=== PATIENT | female | born 1940 | race African-American/Black ===

== ENCOUNTER 2016-05-23 13:09 | Inpatient (IN) | payer MEDICARE, MEDICAID ==
[~2016-05-23] VITALS: Ht 182.9 cm; Wt 66.2 kg
[~2016-05-23 13:09] MED LIST: AMLO1TAB12 PO; AMLO5TAB4 GT; FLUT16SP15 BOTHNSTRLS; LEVO50TA8 GT; LEVO50TA8 PO; LORA0.5T2 PO; MORP15TA67 PO; SENN1TAB35 PO; SENN8.6C5 GT; [UNRECOGNIZED DRUG - CODE] GT
[2016-05-23] MEDS ORDERED: SODIUM CHLORIDE 0.9% 1,000 ML IV ONE (13:49)
[2016-05-23 14:31] LABS: BASOPHILS % 0.4 % (0.0-2.0); DIFFERENTIAL COMMENT 0; EOSINOPHILS % 0.2 % (0.0-5.0); HEMATOCRIT. 29.7 % (36.0-48.0); HEMOGLOBIN. 10.1 g/dL (12.0-16.0); LYMPHOCYTES % 29.5 % (20.0-50.0); MEAN CORPUSCULAR HGB CONC 34.2 g/dL (31.0-37.0); MEAN PLATELET VOLUME 8.6 fl (7.4-10.4); MONOCYTES % 10.1 % (2.0-8.0); NEUTROPHILS % 59.8 % (40.0-76.0); PLATELET 478 x1000/uL (130-400); RED CELL DISTRIBUTION WIDTH 17.8 % (11.6-14.6); WHITE BLOOD COUNT 6.6 x1000/uL (4.5-11.0)
[2016-05-23 14:38] LABS: INR 1.2; PROTHROMBIN TIME 12.2 sec
[2016-05-23 14:48] LABS: ALANINE AMINOTRANSFERASE 14 IU/L (13-61); ANION GAP 14; CALCIUM 7.9 mg/dL (8.5-10.1); CARBON DIOXIDE 26 mEq/L (21-32); CHLORIDE 93 mEq/L (98-107); INDEX HEMOLYSI 1 (1-3); INDEX ICTERIC 1 (1-4); INDEX LIPEMIC 1 (1-3); LIPASE 82 IU/L (73-393); NT PRO B-TYPE NATRIURETIC PEP 1552 pg/mL (5-125); TROPONIN I 0.08 ng/mL (0.00-0.04); UREA NITROGEN BLOOD 13 mg/dL (7-21); eGFR > 60 mL/min (>60)
[2016-05-23 14:51] LABS: CLARITY URINE CLEAR (CLEAR); COLOR URINE YELLOW (YELLOW); GLUCOSE URINE NEGATIVE (NEGATIVE); KETONES URINE NEGATIVE (NEGATIVE); LEUKOCYTE ESTERASE URINE NEGATIVE (NEGATIVE); NITRITE URINE NEGATIVE (NEGATIVE); OCCULT BLOOD URINE 1+ (NEGATIVE); PH URINE >=9.0 (4.5-8.0); PROTEIN URINE 1+ (NEGATIVE); SPECIFIC GRAVITY URINE 1.007 (1.005-1.030); UROBILINOGEN URINE 0.2 E.U./dL (0.2-1.0)
[2016-05-23 15:06] LABS: BACTERIA URINE TRACE; SQUAMOUS EPITHELIAL CELL URINE FEW /lpf (RARE/1+); WBC URINE 0-2 /hpf (0-2)
[2016-05-23] MEDS ORDERED: LEVOFLOXACIN 750MG PREMIX 150 ML IV ONE (16:15)
[2016-05-23] MEDS ORDERED: METRONIDAZOLE 500 MG PREMIX 100 ML IV ONE (17:00)
[2016-05-23 21:00] VITALS: BP 129/94
[2016-05-23 21:28] VITALS: BP 129/94
[2016-05-24] VITALS: BP 128/96
[2016-05-24] MEDS ORDERED: DEXTROSE 50% WATER 50ML SYRINGE IV PRN (00:45)
[2016-05-24] MEDS ORDERED: ALBUMIN HUMAN 25GM/100ML (25%) IV NR ×2 (01:00→01:11)
[2016-05-24] MEDS ORDERED: LORAZEPAM 2MG/ML CPJ IV PRN (01:15)
[2016-05-24 04:00] VITALS: BP 145/96
[2016-05-24] MEDS ORDERED: INFLUENZA VIRUS VACCINE 0.5ML SYR IM ONE (06:00)
[2016-05-24 06:26] LABS: BASOPHILS % 0.3 % (0.0-2.0); DIFFERENTIAL COMMENT 0; EOSINOPHILS % 0.1 % (0.0-5.0); HEMATOCRIT. 25.8 % (36.0-48.0); HEMOGLOBIN. 8.8 g/dL (12.0-16.0); LYMPHOCYTES % 18.3 % (20.0-50.0); MEAN CORPUSCULAR HEMOGLOBIN 25.8 pg (28.0-32.0); MEAN CORPUSCULAR HGB CONC 34.2 g/dL (31.0-37.0); MEAN CORPUSCULAR VOLUME 75.5 fL (81.0-99.0); MEAN PLATELET VOLUME 8.2 fl (7.4-10.4); MONOCYTES % 9.7 % (2.0-8.0); NEUTROPHILS % 71.6 % (40.0-76.0); PLATELET 502 x1000/uL (130-400); RED BLOOD CELL COUNT 3.42 mill/uL (4.2-5.4); WHITE BLOOD COUNT 7.5 x1000/uL (4.5-11.0)
[2016-05-24] MEDS: BLOOD SUGAR DIAGNOSTIC STRIP TEST SCH ×4 (06:40→21:00)
[2016-05-24] MEDS: INSULIN LISPRO 100 UNITS/ML SUBCUT SCH ×4 (06:42→21:00)
[2016-05-24 06:51] LABS: CHLORIDE 96 mEq/L (98-107); INDEX HEMOLYSI 1 (1-3); INDEX ICTERIC 1 (1-4); INDEX LIPEMIC 1 (1-3)
[2016-05-24 07:18] LABS: POTASSIUM URINE RANDOM 26.1 mEq/L
[2016-05-24 07:26] LABS: ALANINE AMINOTRANSFERASE 13 IU/L (13-61); ALBUMIN 2.6 g/dL (3.4-5.0); ANION GAP 15; BILIRUBIN DIRECT 0.3 mg/dL (0.0-0.2); CALCIUM 8.1 mg/dL (8.5-10.1); CARBON DIOXIDE 22 mEq/L (21-32); IRON 19 ug/dL (50-175); MAGNESIUM 2.4 mg/dL (1.8-2.4); PHOSPHORUS 2.7 mg/dL (2.5-4.9); TOTAL IRON BINDING CAPACITY 148 ug/dL (250-450); UREA NITROGEN BLOOD 13 mg/dL (7-21); URIC ACID 3.6 mg/dL (2.6-7.2); eGFR > 60 mL/min (>60)
[2016-05-24 08:00] VITALS: BP 175/111
[2016-05-24] MEDS ORDERED: METRONIDAZOLE 500 MG PREMIX 100 ML IV SCH (09:00)
[2016-05-24] MEDS: FLUTICASONE PROPIONATE 50MCG/SPRAY BOTTLE BOTHNSTRLS SCH (09:44)
[2016-05-24] MEDS: LEVOTHYROXINE SODIUM 50MCG TABLET GT SCH (09:45)
[2016-05-24] MEDS: LORAZEPAM 0.5MG TABLET PO SCH ×3 (09:45→17:23)
[2016-05-24] MEDS: AMLODIPINE 5MG TABLET GT PRN (09:45)
[2016-05-24] MEDS: ASCORBIC ACID 500 MG TABLET GT SCH (09:45)
[2016-05-24 12:00] VITALS: BP 132/91
[2016-05-24] MEDS: METRONIDAZOLE 500 MG PREMIX 100 ML IV SCH ×2 (13:04→17:23)
[2016-05-24 16:00] VITALS: BP 130/98
[2016-05-24 20:00] VITALS: BP 123/81
[2016-05-25] VITALS: BP 149/101
[2016-05-25] MEDS: METRONIDAZOLE 500 MG PREMIX 100 ML IV SCH ×3 (02:34→18:48)
[2016-05-25 04:00] VITALS: BP 147/91
[2016-05-25 06:00] LABS: BASOPHILS % 0.5 % (0.0-2.0); DIFFERENTIAL COMMENT 0; EOSINOPHILS % 0.5 % (0.0-5.0); HEMATOCRIT. 26.2 % (36.0-48.0); HEMOGLOBIN. 9.1 g/dL (12.0-16.0); LYMPHOCYTES % 16.4 % (20.0-50.0); MEAN CORPUSCULAR HEMOGLOBIN 26.4 pg (28.0-32.0); MEAN CORPUSCULAR HGB CONC 34.7 g/dL (31.0-37.0); MEAN PLATELET VOLUME 8.2 fl (7.4-10.4); MONOCYTES % 13.5 % (2.0-8.0); NEUTROPHILS % 69.1 % (40.0-76.0); PLATELET 423 x1000/uL (130-400); RED BLOOD CELL COUNT 3.44 mill/uL (4.2-5.4); RED CELL DISTRIBUTION WIDTH 18.5 % (11.6-14.6); WHITE BLOOD COUNT 7.8 x1000/uL (4.5-11.0)
[2016-05-25] MEDS: BLOOD SUGAR DIAGNOSTIC STRIP TEST SCH ×4 (06:12→20:19)
[2016-05-25] MEDS: INSULIN LISPRO 100 UNITS/ML SUBCUT SCH ×5 (06:12→20:20)
[2016-05-25 06:49] LABS: ALANINE AMINOTRANSFERASE 11 IU/L (13-61); ALBUMIN 2.3 g/dL (3.4-5.0); ANION GAP 12; BILIRUBIN DIRECT 0.2 mg/dL (0.0-0.2); CALCIUM 7.8 mg/dL (8.5-10.1); CARBON DIOXIDE 27 mEq/L (21-32); CHLORIDE 97 mEq/L (98-107); INDEX HEMOLYSI 1 (1-3); INDEX ICTERIC 1 (1-4); INDEX LIPEMIC 1 (1-3); MAGNESIUM 2.4 mg/dL (1.8-2.4); PHOSPHORUS 2.2 mg/dL (2.5-4.9); UREA NITROGEN BLOOD 19 mg/dL (7-21); eGFR > 60 mL/min (>60)
[2016-05-25 06:52] LABS: T3 FREE 1.57 pg/ml (2.18-3.98); T4 FREE 1.69 ng/dL (0.76-1.46)
[2016-05-25 08:00] VITALS: BP 142/92
[2016-05-25 08:01] LABS: INDEX HEMOLYSI 1 (1-3)
[2016-05-25 08:20] LABS: VITAMIN B12 SERUM 1602 pg/mL (211-911)
[2016-05-25 08:21] LABS: FOLIC ACID (FOLATE) SERUM > 20.00 ng/mL (>5.38)
[2016-05-25] MEDS: LORAZEPAM 0.5MG TABLET PO SCH ×3 (09:00→17:00)
[2016-05-25] MEDS: FLUTICASONE PROPIONATE 50MCG/SPRAY BOTTLE BOTHNSTRLS SCH (09:00)
[2016-05-25] MEDS: ASCORBIC ACID 500 MG TABLET GT SCH (09:00)
[2016-05-25] MEDS: LEVOTHYROXINE SODIUM 50MCG TABLET GT SCH (09:00)
[2016-05-25 12:00] VITALS: BP 128/95
[2016-05-25 16:00] VITALS: BP 129/91
[2016-05-25 20:00] VITALS: BP 147/97
[2016-05-26] MEDS: METRONIDAZOLE 500 MG PREMIX 100 ML IV SCH ×3 (01:59→18:18)
[2016-05-26 04:00] VITALS: BP 145/104
[2016-05-26] MEDS: INSULIN LISPRO 100 UNITS/ML SUBCUT SCH ×4 (05:57→21:00)
[2016-05-26] MEDS: BLOOD SUGAR DIAGNOSTIC STRIP TEST SCH ×4 (05:57→22:03)
[2016-05-26 08:00] VITALS: BP 133/92
[2016-05-26] MEDS: ASCORBIC ACID 500 MG TABLET GT SCH (09:57)
[2016-05-26] MEDS: LEVOTHYROXINE SODIUM 50MCG TABLET GT SCH (09:58)
[2016-05-26] MEDS: FLUTICASONE PROPIONATE 50MCG/SPRAY BOTTLE BOTHNSTRLS SCH (09:58)
[2016-05-26] MEDS: LORAZEPAM 0.5MG TABLET PO SCH ×3 (09:58→18:18)
[2016-05-26 12:12] VITALS: BP 120/78
[2016-05-26 16:00] VITALS: BP 130/87
[2016-05-26 20:00] VITALS: BP 116/78
[2016-05-26] MEDS ORDERED: MAGNESIUM CITRATE 300ML SOLUTION PO PRN (21:00)
[2016-05-27] VITALS: BP 132/81
[2016-05-27] MEDS: METRONIDAZOLE 500 MG PREMIX 100 ML IV SCH ×3 (01:10→20:44)
[2016-05-27 04:00] VITALS: BP 123/81
[2016-05-27] MEDS: INSULIN LISPRO 100 UNITS/ML SUBCUT SCH ×4 (06:19→21:00)
[2016-05-27] MEDS: BLOOD SUGAR DIAGNOSTIC STRIP TEST SCH ×4 (06:20→21:00)
[2016-05-27 07:06] LABS: BASOPHILS % 0.5 % (0.0-2.0); DIFFERENTIAL COMMENT 0; EOSINOPHILS % 1.6 % (0.0-5.0); HEMATOCRIT. 26.9 % (36.0-48.0); HEMOGLOBIN. 9.2 g/dL (12.0-16.0); LYMPHOCYTES % 23.8 % (20.0-50.0); MEAN CORPUSCULAR HEMOGLOBIN 26.1 pg (28.0-32.0); MEAN CORPUSCULAR HGB CONC 34.3 g/dL (31.0-37.0); MEAN CORPUSCULAR VOLUME 76.2 fL (81.0-99.0); MEAN PLATELET VOLUME 8.3 fl (7.4-10.4); MONOCYTES % 12.4 % (2.0-8.0); NEUTROPHILS % 61.7 % (40.0-76.0); PLATELET 474 x1000/uL (130-400); RED BLOOD CELL COUNT 3.53 mill/uL (4.2-5.4); RED CELL DISTRIBUTION WIDTH 18.5 % (11.6-14.6)
[2016-05-27 07:12] LABS: BILIRUBIN DIRECT 0.2 mg/dL (0.0-0.2); MAGNESIUM 2.4 mg/dL (1.8-2.4); PHOSPHORUS 2.9 mg/dL (2.5-4.9)
[2016-05-27 07:31] LABS: ANION GAP 11; CALCIUM 7.7 mg/dL (8.5-10.1); CARBON DIOXIDE 27 mEq/L (21-32); CHLORIDE 100 mEq/L (98-107); INDEX HEMOLYSI 1 (1-3); INDEX ICTERIC 1 (1-4); INDEX LIPEMIC 1 (1-3); UREA NITROGEN BLOOD 24 mg/dL (7-21); eGFR > 60 mL/min (>60)
[2016-05-27 08:00] VITALS: BP 121/75
[2016-05-27] MEDS: ASCORBIC ACID 500 MG TABLET GT SCH (09:51)
[2016-05-27] MEDS: LEVOTHYROXINE SODIUM 50MCG TABLET GT SCH (09:51)
[2016-05-27] MEDS: LORAZEPAM 0.5MG TABLET PO SCH ×3 (09:51→20:43)
[2016-05-27] MEDS ORDERED: MAGNESIUM CITRATE 300ML SOLUTION PO NR (10:45)
[2016-05-27] MEDS ORDERED: BISACODYL 10MG SUPP PR NR (10:45)
[2016-05-27 12:00] VITALS: BP 166/104
[2016-05-27 16:00] VITALS: BP 153/97
[2016-05-27 20:00] VITALS: BP 148/98
[2016-05-28] VITALS: BP 137/88
[2016-05-28] MEDS: METRONIDAZOLE 500 MG PREMIX 100 ML IV SCH ×2 (03:35→12:37)
[2016-05-28 04:00] VITALS: BP 137/80
[2016-05-28] MEDS: BLOOD SUGAR DIAGNOSTIC STRIP TEST SCH ×2 (06:05→12:38)
[2016-05-28] MEDS: INSULIN LISPRO 100 UNITS/ML SUBCUT SCH ×2 (06:05→12:15)
[2016-05-28 08:00] VITALS: BP 156/101
[2016-05-28 12:00] VITALS: BP 153/106
[2016-05-28] MEDS: ASCORBIC ACID 500 MG TABLET GT SCH (12:31)
[2016-05-28] MEDS: LEVOTHYROXINE SODIUM 50MCG TABLET GT SCH (12:32)
[2016-05-28] MEDS: LORAZEPAM 0.5MG TABLET PO SCH ×2 (12:32→13:00)
[2016-05-28] MEDS: AMLODIPINE 5MG TABLET GT PRN (12:32)
[2016-05-28 16:00] VITALS: BP 163/107
[2016-05-28 19:03] VITALS: BP 153/106
[2016-05-28] MEDS ORDERED: METRONIDAZOLE 500MG TABLET GT SCH (22:00)
== END 2016-05-28 20:05 | disposition home or self-care (01) | DRG 371 ==
LOC: ER 13:16 → 7EST 16:52 → 5WST 05-25 12:13
PROVIDERS: ADMIT Internal Medicine; ATTEND Internal Medicine
DX: A04.7 Enterocolitis due to Clostridium difficile (principal); E43 Unspecified severe protein-calorie malnutrition; J69.0 Pneumonitis due to inhalation of food and vomit; E87.1 Hypo-osmolality and hyponatremia; N39.0 Urinary tract infection, site not specified; Z68.1 Body mass index [BMI] 19.9 or less, adult; G30.9 Alzheimer's disease, unspecified; F02.80 Dementia in other diseases classified elsewhere, unspecified severity, without behavioral disturbance, psychotic disturbance, mood disturbance, and anxiety; I10 Essential (primary) hypertension; E78.5 Hyperlipidemia, unspecified; K59.00 Constipation, unspecified; E11.649 Type 2 diabetes mellitus with hypoglycemia without coma; D50.9 Iron deficiency anemia, unspecified; Z93.1 Gastrostomy status; Z88.0 Allergy status to penicillin; Z88.5 Allergy status to narcotic agent; Z79.899 Other long term (current) drug therapy; Z82.5 Family history of asthma and other chronic lower respiratory diseases; Z82.49 Family history of ischemic heart disease and other diseases of the circulatory system; Z82.0 Family history of epilepsy and other diseases of the nervous system
CPT/HCPCS: 36415; 71010; 74000; 74176; 80053; 80069; 80076; 81001; 82248; 82570; 82607; 82746; 82962; 83540; 83550; 83605; 83690; 83735; 83880; 84100; 84133; 84145; 84156; 84300; 84439; 84443; 84481; 84484; 84550; 85025; 85610; 87040; 87077; 87493; 90686; 93005; 96361; 96365; 96366; 96375; 99285; J1815; J1956; J2060; J3490; J7030; J7050; P9047

== ENCOUNTER 2016-12-23 10:30 | Emergency (ER) | payer MEDICARE, MEDICAID ==
[~2016-12-23] VITALS: Ht 182.9 cm; Wt 64.0 kg
[~2016-12-23 10:30] MED LIST changes: +ASCO-316 GT; -LORA0.5T2 PO; -[UNRECOGNIZED DRUG - CODE] GT
[2016-12-23] MEDS ORDERED: SODIUM CHLORIDE 0.9% 1,000 ML IV ONE (10:48)
[2016-12-23 11:18] LABS: HEMOGLOBIN. 11.3 g/dL (12.0-16.0); MEAN CORPUSCULAR HEMOGLOBIN 25.4 pg (28.0-32.0); MEAN PLATELET VOLUME 9.6 fl (7.4-10.4); PLATELET 217 x1000/uL (130-400); RED BLOOD CELL COUNT 4.46 mill/uL (4.2-5.4); RED CELL DISTRIBUTION WIDTH 18.4 % (11.6-14.6)
[2016-12-23 11:26] LABS: INR 1.1; PROTHROMBIN TIME 11.2 sec (9.4-11.6)
[2016-12-23 11:27] LABS: CHLORIDE 102 mEq/L (98-107)
[2016-12-23 11:35] LABS: CARBON DIOXIDE 28 mEq/L (21-32)
[2016-12-23 12:13] LABS: PLATELET ESTIMATE NORMAL
[2016-12-23] MEDS ORDERED: SODIUM BICARBONATE 4% (2.4MEQ) 5ML VIAL IV ONE (13:10)
[2016-12-23] MEDS ORDERED: LIDOCAINE HCL 1% 20ML VIAL (Pyxis) INJ ONE (13:10)
[2016-12-23] MEDS ORDERED: LIDOCAINE HCL 2% JELLY 5ML ONE (13:10)
[2016-12-23] MEDS ORDERED: IOHEXOL-300 50 ML BOTTLE IV ONE (13:11)
[2016-12-23 18:38] VITALS: BP 145/98
== END 2016-12-23 18:40 | disposition home or self-care (01) ==
LOC: ER 10:47
DX: Z43.1 Encounter for attention to gastrostomy (principal); G93.49 Other encephalopathy; I10 Essential (primary) hypertension; F03.90 Unspecified dementia, unspecified severity, without behavioral disturbance, psychotic disturbance, mood disturbance, and anxiety; Z88.1 Allergy status to other antibiotic agents; Z88.5 Allergy status to narcotic agent
CPT/HCPCS: 36415; 49450; 80053; 85025; 85610; 99284; C1725; C1892; J3490; Q9967; J7030

== ENCOUNTER 2016-12-24 18:26 | Inpatient (IN) | payer MEDICARE, MEDICAID ==
[~2016-12-24] VITALS: Ht 182.9 cm; Wt 59.9 kg
[2016-12-24 18:56] VITALS: BP 142/83
[2016-12-24 20:00] VITALS: BP 148/92
[2016-12-24] MEDS ORDERED: ENALAPRIL IV PRN (21:00)
[2016-12-24] MEDS ORDERED: DEXTROSE 5% IV PRN (21:00)
[2016-12-24] MEDS ORDERED: WATER IV PRN (21:00)
[2016-12-24] MEDS ORDERED: DEXT 5%/0.45% NACL 1000ML 1,000 ML IV SCH (21:15)
[2016-12-24] MEDS ORDERED: MORPHINE SULFATE 4 MG/ML CPJ (NOT FOR IM USE) IV PRN (21:30)
[2016-12-24 21:53] LABS: HEMATOCRIT. 34.1 % (36.0-48.0); HEMOGLOBIN. 11.4 g/dL (12.0-16.0); MEAN CORPUSCULAR VOLUME 74.6 fL (81.0-99.0); MEAN PLATELET VOLUME 9.7 fl (7.4-10.4); PLATELET 219 x1000/uL (130-400); RED BLOOD CELL COUNT 4.57 mill/uL (4.2-5.4); RED CELL DISTRIBUTION WIDTH 18.8 % (11.6-14.6)
[2016-12-24 21:56] LABS: INR 1.1; PARTIAL THROMBOPLASTIN TIME 26.2 sec (23.4-31.0); PROTHROMBIN TIME 11.2 sec (9.4-11.6)
[2016-12-24 22:10] LABS: CARBON DIOXIDE 28 mEq/L (21-32); CHLORIDE 100 mEq/L (98-107)
[2016-12-24 22:27] LABS: PLATELET ESTIMATE NORMAL
[2016-12-24] MEDS: DEXT 5%/0.45% NACL 1000ML 1,000 ML IV SCH (23:24)
[2016-12-25] VITALS: BP 142/89
[2016-12-25 04:00] VITALS: BP 138/84
[2016-12-25 08:01] VITALS: BP 117/67
[2016-12-25] MEDS ORDERED: ACETAMINOPHEN 650MG SUPP PR PRN (10:15)
[2016-12-25 11:28] LABS: CLARITY URINE CLEAR (CLEAR); COLOR URINE YELLOW (YELLOW); GLUCOSE URINE NEGATIVE (NEGATIVE); KETONES URINE NEGATIVE (NEGATIVE); LEUKOCYTE ESTERASE URINE 2+ (NEGATIVE); NITRITE URINE NEGATIVE (NEGATIVE); OCCULT BLOOD URINE TRACE (NEGATIVE); PH URINE >=9.0 (4.5-8.0); PROTEIN URINE 2+ (NEGATIVE); SPECIFIC GRAVITY URINE 1.012 (1.005-1.030)
[2016-12-25 12:24] VITALS: BP 108/66
[2016-12-25] MEDS: DEXT 5%/0.45% NACL 1000ML 1,000 ML IV SCH (13:17)
[2016-12-25] MEDS: LEVOFLOXACIN 250MG PREMIX 50 ML IV SCH (13:17)
[2016-12-25 16:57] VITALS: BP 142/71
[2016-12-25 20:00] VITALS: BP 121/62
[2016-12-26] VITALS: BP 119/78
[2016-12-26] MEDS: DEXT 5%/0.45% NACL 1000ML 1,000 ML IV SCH (01:57)
[2016-12-26 04:00] VITALS: BP 158/90
[2016-12-26 06:31] LABS: BASOPHILS % 0.7 % (0.0-2.0); EOSINOPHILS % 1.6 % (0.0-5.0); HEMATOCRIT. 29.7 % (36.0-48.0); LYMPHOCYTES % 18.8 % (20.0-50.0); MEAN CORPUSCULAR HEMOGLOBIN 25.4 pg (28.0-32.0); MEAN CORPUSCULAR VOLUME 75.6 fL (81.0-99.0); MEAN PLATELET VOLUME 9.7 fl (7.4-10.4); MONOCYTES % 13.4 % (2.0-8.0); NEUTROPHILS % 65.5 % (40.0-76.0); PLATELET 163 x1000/uL (130-400); RED BLOOD CELL COUNT 3.93 mill/uL (4.2-5.4); RED CELL DISTRIBUTION WIDTH 18.6 % (11.6-14.6)
[2016-12-26 08:56] LABS: CARBON DIOXIDE 25 mEq/L (21-32); CHLORIDE 103 mEq/L (98-107)
[2016-12-26 09:11] VITALS: BP 149/69
[2016-12-26] MEDS: LEVOFLOXACIN 250MG PREMIX 50 ML IV SCH (11:15)
[2016-12-26] MEDS ORDERED: SODIUM CHLORIDE 0.9% 10ML VIAL ONE (11:27)
[2016-12-26] MEDS ORDERED: SIMETHICONE 40 MG/0.6 ML 30ML ONE (11:27)
[2016-12-26 12:52] VITALS: BP 137/70
[2016-12-26] MEDS: KCL 20MEQ/100ML PREMIX 100 ML IV SCH ×2 (13:14→15:10)
[2016-12-26] MEDS: DEXT 5%/0.45% NACL KCL 20MEQ/L 1,000 ML IV SCH (13:14)
[2016-12-26] MEDS ORDERED: MIDAZOLAM HCL 5 MG/5 ML VIAL ONE (15:19)
[2016-12-26 17:55] VITALS: BP 122/43
[2016-12-26 20:00] VITALS: BP 129/60
[2016-12-27] VITALS: BP_SYST 120; BP_SYST 129; BP_DIAS 60; BP_DIAS 69
[2016-12-27] MEDS: DEXT 5%/0.45% NACL KCL 20MEQ/L 1,000 ML IV SCH ×2 (00:17→14:17)
[2016-12-27 04:00] VITALS: BP 125/68
[2016-12-27] MEDS ORDERED: METOCLOPRAMIDE HCL 10MG/2ML VIAL IV NR ×2 (06:00)
[2016-12-27 06:03] LABS: HEMATOCRIT. 29.8 % (36.0-48.0); HEMOGLOBIN. 10.1 g/dL (12.0-16.0); MEAN CORPUSCULAR HEMOGLOBIN 25.4 pg (28.0-32.0); MEAN CORPUSCULAR VOLUME 75.2 fL (81.0-99.0); MEAN PLATELET VOLUME 10.1 fl (7.4-10.4); PLATELET 178 x1000/uL (130-400); RED BLOOD CELL COUNT 3.96 mill/uL (4.2-5.4); RED CELL DISTRIBUTION WIDTH 18.2 % (11.6-14.6)
[2016-12-27 06:56] LABS: CARBON DIOXIDE 25 mEq/L (21-32); CHLORIDE 107 mEq/L (98-107)
[2016-12-27 08:00] VITALS: BP 105/69
[2016-12-27] MEDS ORDERED: ENALAPRIL 1.25MG/ML VIAL 1ML IV PRN (09:45)
[2016-12-27] MEDS: LEVOFLOXACIN 250MG PREMIX 50 ML IV SCH (11:08)
[2016-12-27 12:00] VITALS: BP 139/94
[2016-12-27 16:00] VITALS: BP 138/81
[2016-12-27 16:10] LABS: ATYPICAL LYMPHOCYTES 4
[2016-12-27 16:13] LABS: PLATELET ESTIMATE NORMAL
[2016-12-27 20:00] VITALS: BP 142/76
[2016-12-28] VITALS (7 sets, daily range): BP systolic 125–181; BP diastolic 74–99
[2016-12-28] MEDS: DEXT 5%/0.45% NACL KCL 20MEQ/L 1,000 ML IV SCH ×2 (03:00→17:26)
[2016-12-28] MEDS: LEVOFLOXACIN 250MG PREMIX 50 ML IV SCH (11:18)
[2016-12-29 00:31] VITALS: BP 158/91
[2016-12-29 04:00] VITALS: BP 152/90
[2016-12-29] MEDS: DEXT 5%/0.45% NACL KCL 20MEQ/L 1,000 ML IV SCH ×2 (05:40→11:31)
[2016-12-29 07:48] VITALS: BP 129/95
[2016-12-29] MEDS ORDERED: LACTULOSE 20G/30ML UDC PO PRN (10:30)
[2016-12-29 11:26] VITALS: BP 147/94
[2016-12-29] MEDS: LEVOFLOXACIN 250MG PREMIX 50 ML IV SCH (11:52)
[2016-12-29 15:14] VITALS: BP 136/75
[2016-12-29 17:31] VITALS: BP 149/68
== END 2016-12-29 19:56 | disposition home or self-care (01) | DRG 919 ==
LOC: 6WST 18:26
PROVIDERS: ADMIT Specialist; ATTEND Specialist
PROC: 0DP6XUZ Removal of Feeding Device from Stomach, External Approach (ICD-10-PCS; 2016-12-26)
PROC: 0DH63UZ Insertion of Feeding Device into Stomach, Percutaneous Approach (ICD-10-PCS; principal; 2016-12-26 15:00)
DX: T85.528A Displacement of other gastrointestinal prosthetic devices, implants and grafts, initial encounter (principal); A41.9 Sepsis, unspecified organism; G83.5 Locked-in state; E44.0 Moderate protein-calorie malnutrition; R13.10 Dysphagia, unspecified; N39.0 Urinary tract infection, site not specified; Z68.1 Body mass index [BMI] 19.9 or less, adult; G30.9 Alzheimer's disease, unspecified; F02.80 Dementia in other diseases classified elsewhere, unspecified severity, without behavioral disturbance, psychotic disturbance, mood disturbance, and anxiety; Y83.8 Other surgical procedures as the cause of abnormal reaction of the patient, or of later complication, without mention of misadventure at the time of the procedure; I10 Essential (primary) hypertension; K59.09 Other constipation; Z93.1 Gastrostomy status; Z74.01 Bed confinement status; Z82.0 Family history of epilepsy and other diseases of the nervous system; Z82.49 Family history of ischemic heart disease and other diseases of the circulatory system; Z82.5 Family history of asthma and other chronic lower respiratory diseases; Z87.440 Personal history of urinary (tract) infections; Z88.6 Allergy status to analgesic agent; Z88.0 Allergy status to penicillin; Y92.89 Other specified places as the place of occurrence of the external cause; Z86.73 Personal history of transient ischemic attack (TIA), and cerebral infarction without residual deficits
CPT/HCPCS: 36415; 49450; 80048; 80053; 81001; 85025; 85610; 85730; 87040; 87077; 87086; 87186; 99284; A4216; A6261; C1725; C1892; C1893; J1956; J2250; J2270; J2765; J3480; J3490; J7030; J7050; Q9967

== ENCOUNTER 2019-01-04 20:52 | Inpatient (IN) | payer MEDICARE, MEDICAID ==
[~2019-01-04] VITALS: Ht 182.9 cm; Wt 70.3 kg
[2019-01-04 20:00] VITALS: BP 144/83
[2019-01-04 20:40] VITALS: BP 144/83
[~2019-01-04 20:52] MED LIST changes: -AMLO1TAB12 PO; -AMLO5TAB4 GT; -ASCO-316 GT; -FLUT16SP15 BOTHNSTRLS; -LEVO50TA8 PO; -MORP15TA67 PO; -SENN1TAB35 PO
[2019-01-04] MEDS ORDERED: IPRATROPIUM/ALBUTEROL 0.5-3(2.5)MG/3ML NEB HHN PRN (23:00)
[2019-01-04] MEDS ORDERED: ONDANSETRON HCL 4MG/2ML INJ IV PRN (23:00)
[2019-01-05] VITALS: BP 159/99
[2019-01-05] MEDS ORDERED: HYDRALAZINE 20MG/ML VIAL IV PRN (00:45)
[2019-01-05] MEDS ORDERED: HYDRALAZINE 10 MG in SODIUM CHLORIDE 0.9% 49.5 ML IV PRN (01:00)
[2019-01-05 02:54] LABS: HEMATOCRIT. 33.9 % (36.0-48.0); HEMOGLOBIN. 11.8 g/dL (12.0-16.0); MEAN CORPUSCULAR HEMOGLOBIN 27.5 pg (28.0-32.0); MEAN CORPUSCULAR VOLUME 78.8 fL (81.0-99.0); MEAN PLATELET VOLUME 9.3 fl (7.4-10.4); PLATELET 249 x1000/uL (130-400); RED BLOOD CELL COUNT 4.31 mill/uL (4.2-5.4); RED CELL DISTRIBUTION WIDTH 17.3 % (11.6-14.6)
[2019-01-05 03:00] LABS: CHLORIDE 88 mEq/L (98-107)
[2019-01-05 03:05] LABS: PHOSPHORUS 2.8 mg/dL (2.5-4.9)
[2019-01-05 03:06] LABS: LDL CHOLESTEROL 41 mg/dL (5-100)
[2019-01-05 03:07] LABS: HDL CHOLESTEROL 93 mg/dL (40-59)
[2019-01-05 03:08] LABS: TOTAL IRON BINDING CAPACITY 314 ug/dL (250-450)
[2019-01-05 03:11] LABS: T4 FREE 1.99 ng/dL (0.76-1.46)
[2019-01-05] MEDS ORDERED: DOCU-150 PO (03:34)
[2019-01-05 04:00] VITALS: BP 135/61
[2019-01-05] MEDS: MVI, ADULT NO.1 10 ML in DEXT 5%/0.45% NACL KCL 20MEQ/L 1,000 ML IV SCH ×2 (05:09)
[2019-01-05 08:00] VITALS: BP 134/79
[2019-01-05] MEDS: LEVOTHYROXINE SODIUM 100 MCG/ VIAL IV SCH (08:12)
[2019-01-05 09:30] LABS: PLATELET ESTIMATE NORMAL
[2019-01-05 12:00] VITALS: BP 96/52
[2019-01-05] MEDS: IRON SUCROSE COMPLEX 100 MG/5 ML ML IV SCH (15:06)
[2019-01-05 16:00] VITALS: BP 112/51
[2019-01-05] MEDS ORDERED: DEXT 5%/0.45% NACL 1000ML 1,000 ML IV SCH (16:00)
[2019-01-05 18:17] LABS: CLARITY URINE CLOUDY (CLEAR); COLOR URINE DARK YELLOW (YELLOW); KETONES URINE NEGATIVE (NEGATIVE); LEUKOCYTE ESTERASE URINE 3+ (NEGATIVE); NITRITE URINE POSITIVE (NEGATIVE); OCCULT BLOOD URINE 1+ (NEGATIVE); PH URINE 7.5 (4.5-8.0); PROTEIN URINE 2+ (NEGATIVE); SPECIFIC GRAVITY URINE 1.014 (1.005-1.030)
[2019-01-05] MEDS: PANTOPRAZOLE SODIUM 40 MG/VIAL IV SCH (18:19)
[2019-01-05 20:00] VITALS: BP 113/66
[2019-01-05 23:06] LABS: CHLORIDE 92 mEq/L (98-107)
[2019-01-06] VITALS: BP 118/58
[2019-01-06 04:00] VITALS: BP 103/49
[2019-01-06] MEDS: MVI, ADULT NO.1 10 ML in DEXT 5%/0.45% NACL KCL 20MEQ/L 1,000 ML IV SCH ×2 (04:59)
[2019-01-06] MEDS: DEXT 5%/0.9% NACL 1,000 ML IV SCH ×2 (04:59→22:54)
[2019-01-06 07:09] LABS: BASOPHILS % 0.2 % (0.0-2.0); EOSINOPHILS % 0.2 % (0.0-5.0); HEMATOCRIT. 30.3 % (36.0-48.0); HEMOGLOBIN. 10.4 g/dL (12.0-16.0); MEAN CORPUSCULAR HEMOGLOBIN 27.3 pg (28.0-32.0); MEAN CORPUSCULAR VOLUME 79.5 fL (81.0-99.0); MEAN PLATELET VOLUME 9.4 fl (7.4-10.4); MONOCYTES % 5.6 % (2.0-8.0); PLATELET 203 x1000/uL (130-400); RED BLOOD CELL COUNT 3.81 mill/uL (4.2-5.4); RED CELL DISTRIBUTION WIDTH 17.2 % (11.6-14.6)
[2019-01-06 08:00] VITALS: BP 138/75
[2019-01-06 08:20] LABS: CHLORIDE 94 mEq/L (98-107)
[2019-01-06 08:28] LABS: PHOSPHORUS 2.1 mg/dL (2.5-4.9)
[2019-01-06] MEDS: LEVOTHYROXINE SODIUM 100 MCG/ VIAL IV SCH (08:54)
[2019-01-06] MEDS: IRON SUCROSE COMPLEX 100 MG/5 ML ML IV SCH (08:54)
[2019-01-06] MEDS: PANTOPRAZOLE SODIUM 40 MG/VIAL IV SCH (08:56)
[2019-01-06 12:00] VITALS: BP 123/58
[2019-01-06 16:00] VITALS: BP 129/68
[2019-01-06 20:00] VITALS: BP 129/76
[2019-01-06] MEDS ORDERED: POTASSIUM CHLORIDE INJ 40 MEQ in DEXT 5% WATER 480 ML IV NR (23:00)
[2019-01-07] VITALS: BP 149/75
[2019-01-07 04:00] VITALS: BP_SYST 112
[2019-01-07] MEDS: MVI, ADULT NO.1 10 ML in DEXT 5%/0.45% NACL KCL 20MEQ/L 1,000 ML IV SCH ×2 (04:50)
[2019-01-07 05:52] LABS: HEMATOCRIT. 31.6 % (36.0-48.0); HEMOGLOBIN. 10.8 g/dL (12.0-16.0); MEAN CORPUSCULAR HEMOGLOBIN 27.6 pg (28.0-32.0); MEAN CORPUSCULAR VOLUME 80.7 fL (81.0-99.0); MEAN PLATELET VOLUME 9.2 fl (7.4-10.4); PLATELET 210 x1000/uL (130-400); RED BLOOD CELL COUNT 3.91 mill/uL (4.2-5.4); RED CELL DISTRIBUTION WIDTH 17.7 % (11.6-14.6)
[2019-01-07 08:00] VITALS: BP 106/58
[2019-01-07] MEDS: IRON SUCROSE COMPLEX 100 MG/5 ML ML IV SCH (08:35)
[2019-01-07] MEDS: LEVOTHYROXINE SODIUM 100 MCG/ VIAL IV SCH (08:35)
[2019-01-07] MEDS: PANTOPRAZOLE SODIUM 40 MG/VIAL IV SCH (08:35)
[2019-01-07 09:42] LABS: PLATELET ESTIMATE NORMAL
[2019-01-07 12:00] VITALS: BP 124/76
[2019-01-07 16:00] VITALS: BP 137/83
[2019-01-07 20:00] VITALS: BP 134/75
[2019-01-07] MEDS: DEXT 5%/0.9% NACL 1,000 ML IV SCH (22:46)
[2019-01-08] VITALS: BP 132/73
[2019-01-08 04:00] VITALS: BP 110/58
[2019-01-08] MEDS: MVI, ADULT NO.1 10 ML in DEXT 5%/0.45% NACL KCL 20MEQ/L 1,000 ML IV SCH ×2 (05:30)
[2019-01-08 06:49] LABS: HEMATOCRIT. 30.2 % (36.0-48.0); HEMOGLOBIN. 10.3 g/dL (12.0-16.0); MEAN CORPUSCULAR HEMOGLOBIN 27.5 pg (28.0-32.0); MEAN CORPUSCULAR VOLUME 80.6 fL (81.0-99.0); MEAN PLATELET VOLUME 9.4 fl (7.4-10.4); PLATELET 207 x1000/uL (130-400); RED BLOOD CELL COUNT 3.75 mill/uL (4.2-5.4); RED CELL DISTRIBUTION WIDTH 17.2 % (11.6-14.6)
[2019-01-08 08:00] VITALS: BP 148/97
[2019-01-08] MEDS: PANTOPRAZOLE SODIUM 40 MG/VIAL IV SCH (08:11)
[2019-01-08] MEDS: LEVOTHYROXINE SODIUM 100 MCG/ VIAL IV SCH (08:11)
[2019-01-08] MEDS: DEXT 5%/0.9% NACL 1,000 ML IV SCH (11:42)
[2019-01-08 12:00] VITALS: BP 149/96
[2019-01-08 16:00] VITALS: BP 137/79
[2019-01-08 17:54] LABS: PLATELET ESTIMATE NORMAL
[2019-01-09] MEDS: MVI, ADULT NO.1 10 ML in DEXT 5%/0.45% NACL KCL 20MEQ/L 1,000 ML IV SCH ×2 (04:30)
[2019-01-09] MEDS: DEXT 5%/0.9% NACL 1,000 ML IV SCH (05:00)
[2019-01-09 07:08] LABS: CHLORIDE 107 mEq/L (98-107)
[2019-01-09 07:17] LABS: HEMATOCRIT. 29.9 % (36.0-48.0); HEMOGLOBIN. 10.1 g/dL (12.0-16.0); MEAN CORPUSCULAR HEMOGLOBIN 27.8 pg (28.0-32.0); MEAN PLATELET VOLUME 9.4 fl (7.4-10.4); PLATELET 216 x1000/uL (130-400); RED BLOOD CELL COUNT 3.65 mill/uL (4.2-5.4); RED CELL DISTRIBUTION WIDTH 17.8 % (11.6-14.6)
[2019-01-09 07:23] LABS: PHOSPHORUS 2.5 mg/dL (2.5-4.9)
[2019-01-09 07:26] LABS: TOTAL IRON BINDING CAPACITY 276 ug/dL (250-450)
[2019-01-09 08:00] VITALS: BP 164/95
[2019-01-09] MEDS: PANTOPRAZOLE SODIUM 40 MG/VIAL IV SCH (10:26)
[2019-01-09] MEDS: LEVOTHYROXINE SODIUM 100 MCG/ VIAL IV SCH (10:40)
[2019-01-09 12:00] VITALS: BP 126/63
[2019-01-09 16:00] VITALS: BP 165/98
[2019-01-09 16:35] LABS: PLATELET ESTIMATE NORMAL
[2019-01-09] MEDS ORDERED: BISACODYL 10MG SUPP PR NR (17:45)
[2019-01-09] MEDS ORDERED: NA PHOS,M-B/NA PHOS,DI-BA ENEMA 118ML PR NR (17:54)
[2019-01-09] MEDS ORDERED: MAGNESIUM CITRATE 300ML SOLUTION GT NR (20:00)
[2019-01-10] MEDS: MVI, ADULT NO.1 10 ML in DEXT 5%/0.45% NACL KCL 20MEQ/L 1,000 ML IV SCH ×2 (05:35)
[2019-01-10 08:00] VITALS: BP 145/87
[2019-01-10] MEDS ORDERED: FAMOTIDINE 20MG/2ML VIAL IV SCH (09:00)
[2019-01-10] MEDS ORDERED: FAMOTIDINE 20MG TABLET PO SCH (09:00)
[2019-01-10] MEDS: LEVOTHYROXINE SODIUM 100 MCG/ VIAL IV SCH (09:18)
[2019-01-10 11:29] VITALS: BP 122/72
[2019-01-10 12:00] VITALS: BP 122/72
== END 2019-01-10 12:52 | disposition home or self-care (01) | DRG 391 ==
LOC: 6EST 20:52
PROVIDERS: ADMIT Internal Medicine; ATTEND Internal Medicine
DX: K29.00 Acute gastritis without bleeding (principal); E43 Unspecified severe protein-calorie malnutrition; E87.1 Hypo-osmolality and hyponatremia; F02.80 Dementia in other diseases classified elsewhere, unspecified severity, without behavioral disturbance, psychotic disturbance, mood disturbance, and anxiety; G30.9 Alzheimer's disease, unspecified; K56.41 Fecal impaction; D50.9 Iron deficiency anemia, unspecified; L89.020 Pressure ulcer of left elbow, unstageable; L89.019 Pressure ulcer of right elbow, unspecified stage; Z82.0 Family history of epilepsy and other diseases of the nervous system; Z82.49 Family history of ischemic heart disease and other diseases of the circulatory system; Z87.440 Personal history of urinary (tract) infections; Z93.1 Gastrostomy status; Z82.5 Family history of asthma and other chronic lower respiratory diseases; Z83.3 Family history of diabetes mellitus; Z68.21 Body mass index [BMI] 21.0-21.9, adult
CPT/HCPCS: 36415; 71045; 74018; 80061; 80069; 80076; 81003; 82248; 82270; 83036; 83540; 83550; 83735; 84100; 84133; 84156; 84300; 84439; 84443; 84481; 84550; 86677; 93005; 93970; C9113; J3480; J3490; J7042; J7060